=== PATIENT | female | born 1990 | race Caucasian/White ===

== ENCOUNTER 2018-06-04 05:00 | Inpatient (IN) | payer OTHER ==
[~2018-06-04] VITALS: Ht 162.6 cm; Wt 90.9 kg
[2018-06-04] MEDS ORDERED: OXYTOCIN 30U/ 0.9% NaCL 500ML 500 ML IV ONE (05:07)
[2018-06-04] MEDS ORDERED: D5%-LACTATED RINGERS 1,000 ML IV SCH (05:07)
[2018-06-04] MEDS ORDERED: OXYTOCIN 30U/ 0.9% NaCL 500ML 500 ML IV PRN (05:07)
[2018-06-04 05:16] VITALS: BP 138/70
[2018-06-04] MEDS ORDERED: PREN-3 PO (05:24)
[2018-06-04] MEDS ORDERED: FENTANYL PF 100 MCG/2ML IV PRN (05:30)
[2018-06-04] MEDS ORDERED: ONDANSETRON 2MG/ML, 2ML IVPush PRN (05:30)
[2018-06-04] MEDS ORDERED: FENTANYL PF 100 MCG/2ML IVPush PRN (05:30)
[2018-06-04 05:52] LABS: BASOPHILS # (AUTO) 0.04 x10^3/uL (0-0.1); BASOPHILS % (AUTO) 0 % (0-1); EOSINOPHILS % (AUTO) 1 % (1-7); LYMPHOCYTES # (AUTO) 2.18 x10^3/uL (1-3.4); LYMPHOCYTES % (AUTO) 24 % (22-44); MD NO; MEAN CORPUSCULAR HGB CONC 35.2 g/dL (32.4-35.8); MEAN CORPUSCULAR VOLUME 90.9 fL (80-100); MEAN PLATELET VOLUME 9.4 fL (7.4-10.4); MONOCYTES % (AUTO) 6 % (2-9); NEUTROPHILS # (AUTO) 6.19 x10^3/uL (1.8-6.8); NEUTROPHILS % (AUTO) 69 % (42-75); PLATELET COUNT 231 x10^3/uL (130-400); RED BLOOD COUNT 4.06 x10^6/uL (3.82-5.3); RED CELL DISTRIBUTION WIDTH 12.7 % (9.6-15.2)
[2018-06-04] MEDS: LACTATED RINGERS 1,000 ML IV SCH ×3 (06:25→17:06)
[2018-06-04] MEDS ORDERED: MISOPROSTOL 25 MCG TABLET VG PRN (06:30)
[2018-06-04] MEDS ORDERED: MISOPROSTOL 25 MCG TABLET ONE (06:32)
[2018-06-04] MEDS ORDERED: NEWBORN KIT ONE (06:32)
[2018-06-04] MEDS ORDERED: OXYTOCIN 30U/ 0.9% NaCL 500ML 500 ML ONE (06:32)
[2018-06-04] MEDS ORDERED: FENTANYL/BUPIV./NS/PF 250 ML EPIDCONT SCH ×2 (12:44→15:03)
[2018-06-04] MEDS ORDERED: FENTANYL PF 500 MCG, BUPIVACAINE/PF 0.5%, 30ML 62.5 ML in SODIUM CHLORIDE 0.9% 177.5 ML EPIDCONT SCH (13:00)
[2018-06-04] MEDS ORDERED: FENTANYL PF 100 MCG/2ML ONE (13:49)
[2018-06-04] MEDS ORDERED: BUPIVACAINE 0.25% ONE (15:06)
[2018-06-04] MEDS ORDERED: MISOPROSTOL 200 MCG TABLET ONE (15:12)
[2018-06-04] MEDS ORDERED: LIDOCAINE 1%, 20ML ONE (15:12)
[2018-06-04] MEDS ORDERED: NALOXONE 0.4 MG/ML, 1ML IVPush PRN (15:30)
[2018-06-04] MEDS ORDERED: LACTATED RINGERS 1,000 ML IVBOLUS PRN (15:30)
[2018-06-04] MEDS ORDERED: EPHEDRINE 50 MG/ML, 1ML IVPush PRN (15:30)
[2018-06-04] MEDS ORDERED: CALCIUM CARBONATE 500 MG TAB.CHEW ONE ×2 (20:24→21:05)
[2018-06-04] MEDS: D5%-LACTATED RINGERS 1,000 ML IV SCH (20:31)
[2018-06-04] MEDS: CALCIUM CARBONATE 500 MG TAB.CHEW PO PRN (20:31)
[2018-06-05] MEDS: LACTATED RINGERS 1,000 ML IV SCH ×6 (00:01→23:30)
[2018-06-05] MEDS: D5%-LACTATED RINGERS 1,000 ML IV SCH (04:26)
[2018-06-05] MEDS ORDERED: CALCIUM CARBONATE 500 MG TAB.CHEW ONE (06:36)
[2018-06-05] MEDS: CALCIUM CARBONATE 500 MG TAB.CHEW PO PRN (06:38)
[2018-06-05] MEDS ORDERED: FENTANYL/BUPIV./NS/PF 250 ML EPIDCONT ONE (07:33)
[2018-06-05] MEDS ORDERED: LIDOCAINE/MPF 2%-EPI 1:200K, 20 ML ONE (08:28)
[2018-06-05] MEDS ORDERED: MISOPROSTOL 200 MCG TABLET ONE (09:20)
[2018-06-05] MEDS ORDERED: CARBOPROST TROMETHAMINE 250 MCG/ML, 1ML IM ONE (09:21)
[2018-06-05] MEDS ORDERED: OXYTOCIN 30U/ 0.9% NaCL 500ML 500 ML IV SCH (10:04)
[2018-06-05] MEDS ORDERED: LACTATED RINGERS 1,000 ML IV SCH (10:04)
[2018-06-05] MEDS ORDERED: SODIUM CITRATE/CITRIC ACID 30 ML UDC ONE (10:08)
[2018-06-05] MEDS ORDERED: METOCLOPRAMIDE 5 MG/ML, 2ML ONE (10:09)
[2018-06-05] MEDS ORDERED: morphine SULFATE/PF 0.5 MG/ML, 10ML ONE (10:18)
[2018-06-05] MEDS ORDERED: DEXAMETHASONE 4 MG/ML, 1ML ONE (10:19)
[2018-06-05] MEDS ORDERED: WATER-INJECTION,STERILE 10 ML IV ONE (10:19)
[2018-06-05] MEDS ORDERED: KETOROLAC 30 MG/1 ML ONE (10:19)
[2018-06-05] MEDS ORDERED: CEFAZOLIN 1,000 MG ONE (10:19)
[2018-06-05] MEDS ORDERED: OXYTOCIN 10 UNITS/ML, 1ML ONE (10:19)
[2018-06-05] MEDS ORDERED: ONDANSETRON 2MG/ML, 2ML ONE ×2 (10:19→10:51)
[2018-06-05] MEDS ORDERED: SODIUM CITRATE/CITRIC ACID 30 ML UDC PO ONE (10:30)
[2018-06-05] MEDS ORDERED: LACTATED RINGERS 1,000 ML IVBOLUS ONE (10:30)
[2018-06-05] MEDS ORDERED: METOCLOPRAMIDE 5 MG/ML, 2ML IV ONE (10:30)
[2018-06-05] MEDS ORDERED: MIDAZOLAM 1 MG/ML, 2ML ONE (10:40)
[2018-06-05] MEDS ORDERED: FENTANYL PF 100 MCG/2ML ONE ×2 (10:41→10:49)
[2018-06-05] MEDS ORDERED: CLINDAMYCIN PMX 900MG/50ML 50 ML ONE (10:43)
[2018-06-05] MEDS ORDERED: AZITHROMYCIN 1,000 MG in SODIUM CHLORIDE 0.9% 500 ML IV ONE (11:00)
[2018-06-05] MEDS ORDERED: METHYLERGONOVINE 0.2MG TABLET ONE (11:16)
[2018-06-05] MEDS ORDERED: ACETAMINOPHEN 325 MG TABLET PO PRN (12:00)
[2018-06-05] MEDS ORDERED: METHYLERGONOVINE 0.2 MG/ML IM PRN (12:00)
[2018-06-05] MEDS ORDERED: ONDANSETRON 2MG/ML, 2ML IV PRN (12:00)
[2018-06-05] MEDS ORDERED: MISOPROSTOL 200 MCG TABLET PR PRN (12:00)
[2018-06-05] MEDS ORDERED: morphine SULFATE 10 MG/ML, 1ML IVPush PRN ×3 (12:00→14:30)
[2018-06-05] MEDS ORDERED: OXYcodone/APAP 5/325MG TABLET PO PRN ×2 (12:00→14:30)
[2018-06-05] MEDS ORDERED: CARBOPROST TROMETHAMINE 250 MCG/ML, 1ML IM PRN (12:00)
[2018-06-05] MEDS: OXYTOCIN 30U/ 0.9% NaCL 500ML 500 ML IV SCH ×2 (13:30→21:31)
[2018-06-05 13:45] VITALS: BP 132/72
[2018-06-05] MEDS ORDERED: DIPHENHYDRAMINE 50 MG/ML, 1ML IV PRN (14:30)
[2018-06-05] MEDS ORDERED: EPHEDRINE 50 MG/ML, 1ML IVPush PRN (14:30)
[2018-06-05] MEDS ORDERED: NO SEDATIVES, TRANQUILIZERS OR ANTIEMETICS XX SCH (14:30)
[2018-06-05] MEDS ORDERED: ONDANSETRON 2MG/ML, 2ML IVPush PRN (14:30)
[2018-06-05] MEDS ORDERED: NALOXONE 0.4 MG/ML, 1ML IV PRN (14:30)
[2018-06-05] MEDS: KETOROLAC 30 MG/1 ML IVPush SCH ×2 (17:45→23:37)
[2018-06-05 18:00] VITALS: BP 129/80
[2018-06-05 19:07] LABS: MEAN CORPUSCULAR HEMOGLOBIN 31.9 pg (27.0-34.8); MEAN CORPUSCULAR VOLUME 91.3 fL (80-100); MEAN PLATELET VOLUME 8.8 fL (7.4-10.4); PLATELET COUNT 188 x10^3/uL (130-400); RED BLOOD COUNT 3.66 x10^6/uL (3.82-5.3); RED CELL DISTRIBUTION WIDTH 13.1 % (9.6-15.2)
[2018-06-05 19:36] LABS: MD YES
[2018-06-05 19:40] LABS: BAND#(MANUAL) 1.32 x10^3/uL; BANDS%(MANUAL) 7 % (0-7); EOS#(MANUAL) 0.19 x10^3/uL (0.0-0.4); EOS% (MANUAL) 1 % (1-7); LYMPH#(MANUAL) 0.94 x10^3/uL (1-3.4); LYMPHS% (MANUAL) 5 % (22-44); MONOS#(MANUAL) 0.94 x10^3/uL (0.3-2.7); MONOS% (MANUAL) 5 % (2-9); SEG#(MANUAL) 15.42 x10^3/uL (1.8-6.8); SEGS% (MANUAL) 82 % (42-75)
[2018-06-05 19:41] LABS: <PLATELET ESTIMATE> ADEQUATE; <PLT MORPHOLOGY> NORMAL PLT MORPH; <RBC MORPHOLOGY> NORMAL
[2018-06-05 22:00] VITALS: BP 113/73
[2018-06-06] MEDS: LACTATED RINGERS 1,000 ML IV SCH ×5 (01:21→23:30)
[2018-06-06 02:00] VITALS: BP 101/53
[2018-06-06] MEDS: OXYcodone/APAP 5/325MG TABLET PO PRN ×5 (03:13→23:35)
[2018-06-06] MEDS: KETOROLAC 30 MG/1 ML IVPush SCH ×2 (05:49→11:53)
[2018-06-06] MEDS: OXYTOCIN 30U/ 0.9% NaCL 500ML 500 ML IV SCH ×2 (07:31→17:31)
[2018-06-06] MEDS: PRENATAL VIT/IRON/FA 1 EACH TABLET PO SCH (08:37)
[2018-06-06] MEDS: DOCUSATE 100 MG CAPSULE PO PRN ×2 (08:37→19:34)
[2018-06-06 08:40] VITALS: BP 104/67
[2018-06-06] MEDS: IBUPROFEN 600 MG TABLET PO PRN (19:35)
[2018-06-06 20:00] VITALS: BP 120/78
[2018-06-07] MEDS: LACTATED RINGERS 1,000 ML IV SCH ×4 (03:31→15:30)
[2018-06-07] MEDS: OXYTOCIN 30U/ 0.9% NaCL 500ML 500 ML IV SCH ×2 (03:31→13:31)
[2018-06-07] MEDS: OXYcodone/APAP 5/325MG TABLET PO PRN ×4 (04:07→16:58)
[2018-06-07] MEDS: IBUPROFEN 600 MG TABLET PO PRN ×3 (04:07→16:57)
[2018-06-07] MEDS: PRENATAL VIT/IRON/FA 1 EACH TABLET PO SCH (08:25)
[2018-06-07] MEDS: DOCUSATE 100 MG CAPSULE PO PRN (08:25)
[2018-06-07 08:31] VITALS: BP 123/79
[2018-06-07] MEDS ORDERED: OXYC-302 PO (14:28)
[2018-06-07] MEDS ORDERED: IBUP-1222 PO (14:28)
[2018-06-07] MEDS ORDERED: SENN-52 PO (14:29)
== END 2018-06-07 17:10 | disposition home or self-care (01) | DRG 788 ==
LOC: LDIP 05:00 → 2NW 06-05 13:54
PROVIDERS: ADMIT Obstetrics & Gynecology; ATTEND Obstetrics & Gynecology
PROC: 10D00Z1 Extraction of Products of Conception, Low, Open Approach (ICD-10-PCS; principal; 2018-06-05)
DX: O13.4 Gestational [pregnancy-induced] hypertension without significant proteinuria, complicating childbirth (principal); O99.344 Other mental disorders complicating childbirth; Z3A.39 39 weeks gestation of pregnancy; Z37.0 Single live birth; F41.9 Anxiety disorder, unspecified; O62.1 Secondary uterine inertia; O69.81X0 Labor and delivery complicated by cord around neck, without compression, not applicable or unspecified
CPT/HCPCS: 36415; J7121; 82803; 85025; 86850; 86900; G0378; J0456; J0690; J1100; J1885; J2250; J2274; J2405; J3010; J3490; J2590; J2765; J7040; J7050; J7120